=== PATIENT | male | born 1995 | race Caucasian/White ===

== ENCOUNTER → 2016-06-19 | Outpatient (CLI) | payer BC | LOC: BHSO 12:59 | DX: F41.1 Generalized anxiety disorder (principal) ==

== ENCOUNTER → 2016-07-06 | Outpatient (CLI) | payer BC | LOC: BHSO 14:43 | DX: F90.0 Attention-deficit hyperactivity disorder, predominantly inattentive type (principal) ==

== ENCOUNTER → 2016-09-21 | Outpatient (CLI) | payer BC | LOC: BHSO 10:00 | DX: F41.1 Generalized anxiety disorder (principal) ==

== ENCOUNTER → 2016-10-27 | Outpatient (CLI) | payer BC | LOC: BHSO 13:57 | DX: F41.1 Generalized anxiety disorder (principal) ==

== ENCOUNTER → 2016-11-28 | Outpatient (CLI) | payer BC | LOC: BHSO 14:01 | DX: F41.1 Generalized anxiety disorder (principal) ==

== ENCOUNTER → 2016-12-27 | Outpatient (CLI) | payer BC | LOC: BHSO 15:08 | DX: F41.1 Generalized anxiety disorder (principal) ==

== ENCOUNTER → 2017-01-29 | Outpatient (CLI) | payer BC | LOC: BHSO 15:02 | DX: F60.3 Borderline personality disorder (principal) ==

== ENCOUNTER → 2017-09-04 | Outpatient (CLI) | payer BC | LOC: BHSO 14:58 | DX: F41.1 Generalized anxiety disorder (principal) ==